=== PATIENT | female | born 2000 | race African-American/Black ===

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

== ENCOUNTER 2020-08-05 08:17 | Inpatient (IN) ==
[2020-08-05] MEDS ORDERED: LACTATED RINGER'S 1,000 ML IV PRN (08:28)
[2020-08-05] MEDS ORDERED: OXYTOCIN 30 UNITS/500 ML BAG IV PRN (08:28)
[2020-08-05 08:45] LABS: Hematocrit (blood only) 34.3 % (37-47); Hemoglobin 11.4 g/dL (12.0-16.0); Mean Corpuscular Hemoglobin 29.3 pg (25-34); Mean Corpuscular Hgb Conc 33.2 g/dL (32-36); Mean Corpuscular Volume 88.2 fL (80-100); Mean Platelet Volume 10.1 fL (7.4-10.4); Platelet Count 252 K/uL (130-400); RDW Coefficient of Variation 13.5 % (11.5-14.5); RDW Standard Deviation 43.1 fL (36.4-46.3); Red Blood Count 3.89 M/uL (4.2-5.4); White Blood Count 12.22 K/uL (4.8-10.8)
[2020-08-05] MEDS: miSOPROStoL 50 MCG TAB PO SCH ×4 (09:25→21:35)
--- NOTE | 2020-08-05 09:47 | Progress Note ---
Date of Service August 05, 2020 Assessment & Plan Admission and Anticipated Discharge Date Admission Date: August 05, 2020 Subjective Met Pt and Grand Ma Induction for prolonged gestation FHR; CAT1 Ctx; Q7,minimal VE; ft/thick/post Bedside sono; VT plan Cervidil Q4 Results & Data ([facility]) Vital Signs (Past 12 Hours) Vital Signs Temp Pulse Resp BP 08/05/20 08:33 37.1 C 93 H 20 118/72
[2020-08-05] MEDS ORDERED: CALCIUM CARBONATE 500 MG CHEWABLE TAB PO ONE (10:48)
[2020-08-05] MEDS ORDERED: DINOPROSTONE 10 MG INSERT PV ONE (16:44)
[2020-08-05] MEDS ORDERED: ZOLPIDEM TARTRATE 10 MG TAB PO PRN (19:50)
--- NOTE | 2020-08-05 19:53 | Progress Note ---
Date of Service August 05, 2020 Assessment & Plan Admission and Anticipated Discharge Date Admission Date: August 05, 2020 Subjective Pt doing well Induction for postdates FHR; CAT1 Ctx; 1-2mins Plan; Expectant management Results & Data ([facility]) Vital Signs (Past 12 Hours) Vital Signs Temp Pulse Resp BP 08/05/20 19:15 36.6 C 18 08/05/20 19:06 105 H 112/65 08/05/20 15:13 36.8 C 81 20 117/68 08/05/20 12:16 37.2 C 82 20 91/53 L 08/05/20 08:33 37.1 C 93 H 20 118/72
[2020-08-05] MEDS ORDERED: ACETAMINOPHEN 500 MG TAB PO PRN (19:54)
[2020-08-05] MEDS ORDERED: BUTORPHANOL TARTRATE 1 MG/ML VIAL IV PRN (19:54)
[2020-08-06] MEDS: miSOPROStoL 50 MCG TAB PO SCH ×3 (01:00→10:14)
[2020-08-06] MEDS ORDERED: miSOPROStoL 50 MCG TAB PO STA (03:41)
--- NOTE | 2020-08-06 10:04 | Obstetrical Progress Note ---
Date of Service August 06, 2020 Assessment & Plan Admission and Anticipated Discharge Date Admission Date: August 05, 2020 Physical Exam Genitourinary: Manual OB Exam: + cervical dilation fingertip, + cervical effacement 50% and + station high OB Exam Monitor Tracing: + external FHT monitor used and + external uterine monitor used Will start Oxytocin EFW 8.5 lbs Results & Data ([facility]) Vital Signs (Past 12 Hours) Vital Signs Temp Pulse Resp BP 08/06/20 09:15 36.8 C 18 08/06/20 09:14 85 106/62 08/06/20 07:10 37.4 C 18 08/06/20 07:02 37.0 C 18 08/06/20 03:46 76 108/55 L 08/06/20 03:45 36.7 C 18
[2020-08-06] MEDS ORDERED: OXYTOCIN 30 UNITS/500 ML BAG IV PRN (10:12)
[2020-08-06] MEDS: BUTORPHANOL TARTRATE 1 MG/ML VIAL IV PRN ×3 (13:52→18:29)
--- NOTE | 2020-08-06 15:55 | Obstetrical Progress Note ---
Date of Service August 06, 2020 Assessment & Plan Admission and Anticipated Discharge Date Admission Date: August 05, 2020 Physical Exam Genitourinary: Manual OB Exam: + cervical dilation fingertip, + cervical effacement 50% and + station high OB Exam Monitor Tracing: + external FHT monitor used, + external uterine monitor used, + category I and + normal FHT variability Results & Data ([facility]) Vital Signs (Past 12 Hours) Vital Signs Temp Pulse Resp BP 08/06/20 13:50 36.7 C 18 08/06/20 13:30 18 08/06/20 13:00 18 08/06/20 12:30 18 08/06/20 12:00 18 08/06/20 11:30 18 08/06/20 10:58 18 08/06/20 10:49 86 113/64 08/06/20 10:41 82 114/67 08/06/20 10:35 81 18 112/70 08/06/20 09:15 36.8 C 18 08/06/20 09:14 85 106/62 08/06/20 07:10 37.4 C 18 08/06/20 07:02 37.0 C 18
[2020-08-06] MEDS ORDERED: ZOLPIDEM TARTRATE 5 MG TAB PO PRN (23:54)
[2020-08-07] MEDS ORDERED: ZOLPIDEM TARTRATE 5 MG TAB ONE
[2020-08-07] MEDS: BUTORPHANOL TARTRATE 1 MG/ML VIAL IV PRN (00:04)
[2020-08-07] MEDS ORDERED: ACETAMINOPHEN 1,000 MG/100 ML VIAL IV STA (00:49)
--- NOTE | 2020-08-07 00:54 | Obstetrical Progress Note ---
Date of Service August 07, 2020 Assessment & Plan Admission and Anticipated Discharge Date Admission Date: August 05, 2020 Physical Exam Genitourinary: OB Exam Monitor Tracing: + external FHT monitor used, + external uterine monitor used, + category I and + normal FHT variability patient does not tolerate vaginal exams Will give Cytotec orally to continue cervical ripening advised patient that may need more ripening Results & Data ([facility]) Vital Signs (Past 12 Hours) Vital Signs Temp Pulse Resp BP 08/06/20 23:54 73 91/55 L 08/06/20 19:41 36.6 C 18 08/06/20 19:07 75 103/59 L 08/06/20 13:50 36.7 C 18 08/06/20 13:30 18 08/06/20 13:00 18
[2020-08-07] MEDS: miSOPROStoL 50 MCG TAB PO SCH ×2 (01:20→08:50)
[2020-08-07] MEDS ORDERED: ACETAMINOPHEN 1000 MG/100 ML IV IV ONE (03:31)
[2020-08-07] MEDS ORDERED: SODIUM CHLORIDE 0.9% INJ 10 ML VIAL ONE (09:05)
[2020-08-07] MEDS ORDERED: BUPIVACAINE 0.25% 30 ML VIAL ONE ×2 (09:05→21:13)
[2020-08-07] MEDS ORDERED: ePHEDrine sulfate 50 MG/ML AMP ONE (09:05)
[2020-08-07] MEDS ORDERED: fentaNYL citrate 100 MCG/2 ML VIAL ONE ×2 (09:05→21:13)
[2020-08-07] MEDS ORDERED: fentaNYL 2MCG/ML ROPIVACAINE 1.25MG/ML 100 ML BAG EPI ONE (09:06)
--- NOTE | 2020-08-07 09:57 | Anesthesiology Consultation ---
Date of Service August 07, 2020 Assessment & Plan (1) Encounter for pre-operative examination: Chart Review Chart Review: Acceptable Risk for Labor Epidural Consults Requested none ASA ASA2 Proposed Anesthesia Anesthesia Type: Labor Epidural Risk / Benefits Reviewed With: PT / POA / Parent / Guardian, Accepts Plan and Informed Consent Obtained History Height/Weight Height: 5 ft 4 in Weight: 93.44 kg Allergies Allergy/AdvReac Type Severity Reaction Status Date / Time No Known Allergies Allergy Unverified 03/31/20 13:57 Medications Home Medications Medication Instructions Recorded Confirmed Last Taken PNV cmb#95-ferrous fumarate-FA 1 tab PO QAM 03/31/20 08/05/20 08/04/20 08:00 [] Active Medications Generic Name Dose Route Start Last Admin Trade Name Freq PRN Reason Stop Dose Admin Butorphanol Tartrate 1 mg 08/06/20 13:45 08/07/20 00:04 Butorphanol Tartrate 1 Mg/Ml Vial IV 09/05/20 13:44 1 mg Q2R PRN Administration Pain Oxytocin 30 units in 500 mls @ 0 mls/hr 08/06/20 10:12 08/06/20 16:38 Pitocin IV 08/08/20 10:11 0 units/hr .Q0M PRN 0 mls/hr Labor Induction/Augmentation Titration Protocol 0 UNITS/HR Misoprostol 50 mcg 08/05/20 08:40 08/07/20 08:50 Misoprostol 50 Mcg Tab PO 09/04/20 08:39 Not Given Q4 DORA Zolpidem Tartrate 10 mg 08/05/20 19:50 08/05/20 21:39 Zolpidem Tartrate 10 Mg Tab PO 09/04/20 19:49 10 mg HS PRN Administration Sleep Zolpidem Tartrate 5 mg 08/06/20 23:54 08/07/20 00:03 Zolpidem Tartrate 5 Mg Tab PO 09/05/20 23:53 5 mg HS PRN Administration Sleep Past Medical History Medical History (Updated 08/07/20 @ 09:57 by Benito Rome DO) No pertinent past medical history Exercise / Class Metabolic Activity II 4-5 Yardwork/Stairs/Walk up hill Past Surgical History Surgical History No pertinent past surgical history Past Anesthesia History No Hx of Anesthesia Complications and No Family Hx of Anesthesia Complications History of PONV No Hx of PONV and No Hx of Motion Sickness Social History Smoking Status: Former smoker Do You Dip or Chew Tobacco: No Hx Alcohol Use: No Hx Substance Use: No Physical Exam Vital Signs Last Vital Signs Temp 98.2 F 08/07/20 04:30 Pulse 70 08/07/20 05:54 Resp 18 08/06/20 19:41 BP 113/73 08/07/20 05:54 ENMT Mouth: no dentition abnormality Thyromental Distance: > or= 3.5 Finger Breadths Mallampati Class: II Neck normal visual inspection Respiratory normal respiratory effort Auscultation: lungs clear to auscultation bilaterally Cardiovascular Rate/Rhythm: regular rate and regular rhythm Testing Laboratory Results 08/05/20 08:34
[2020-08-07] MEDS ORDERED: NALOXONE HCL 1 MG in SODIUM CHLORIDE 0.9% 1000ML 1,000 ML IV PRN (10:22)
[2020-08-07] MEDS ORDERED: NALOXONE HCL 0.4 MG/1 ML VIAL/CARP IV PRN (10:22)
[2020-08-07] MEDS ORDERED: ePHEDrine sulfate 50 MG/ML AMP IV PRN (10:22)
[2020-08-07] MEDS ORDERED: diphenhydrAMINE 50 MG/ML VIAL IV PRN (10:22)
[2020-08-07] MEDS ORDERED: ONDANSETRON INJ 2 MG/ML 2 ML VIAL IV PRN (10:22)
--- NOTE | 2020-08-07 10:26 | Progress Note ---
Date of Service August 07, 2020 Assessment & Plan Admission and Anticipated Discharge Date Admission Date: August 05, 2020 Subjective Pt doing well No complaints Ht. S1S2 , R/R/R/R Lung; CTA bilat. Abd. NT +BS Incision C/D/I Ext/ No c/C/e a/p lap RSO Pt doing well d/c home with instructions Results & Data ([facility]) Vital Signs (Past 12 Hours) Vital Signs Temp Pulse BP Pulse Ox 08/07/20 10:22 95 H 123/70 08/07/20 10:20 99 H 123/74 08/07/20 10:18 94 H 97 08/07/20 10:15 85 87 L 08/07/20 10:13 96 H 98 08/07/20 10:08 91 H 100 08/07/20 10:06 97 H 93 08/07/20 10:03 105 H 99 08/07/20 09:58 78 126/73 100 08/07/20 05:54 70 113/73 08/07/20 04:30 36.8 C 08/06/20 23:54 73 91/55 L 08/06/20 23:00 36.6 C
[2020-08-07 10:48] LABS: Hematocrit (blood only) 34.1 % (37-47); Hemoglobin 11.3 g/dL (12.0-16.0)
--- NOTE | 2020-08-07 10:51 | Progress Note ---
Date of Service August 07, 2020 Assessment & Plan Admission and Anticipated Discharge Date Admission Date: August 05, 2020 Subjective Induction for post dates FHR; CAT1 Ctx 1-4mins VE; 4/75/-[address] starting Pitocin augmentation Results & Data ([facility]) Vital Signs (Past 12 Hours) Vital Signs Temp Pulse BP Pulse Ox 08/07/20 10:48 84 99 08/07/20 10:43 98 H 96 08/07/20 10:42 99 H 93 08/07/20 10:38 87 109/60 95 08/07/20 10:35 89 108/59 L 08/07/20 10:33 87 96 08/07/20 10:28 89 107/58 L 97 08/07/20 10:26 96 H 112/59 L 08/07/20 10:24 100 H 141/63 H 08/07/20 10:23 99 H 96 08/07/20 10:22 95 H 123/70 08/07/20 10:20 99 H 123/74 08/07/20 10:18 94 H 97 08/07/20 10:15 85 87 L 08/07/20 10:13 96 H 98 08/07/20 10:08 91 H 100 08/07/20 10:06 97 H 93 08/07/20 10:03 105 H 99 08/07/20 09:58 78 126/73 100 08/07/20 05:54 70 113/73 08/07/20 04:30 36.8 C 08/06/20 23:54 73 91/55 L 08/06/20 23:00 36.6 C
[2020-08-07] MEDS ORDERED: OXYTOCIN 30 UNITS/500 ML BAG IV PRN (10:52)
[2020-08-07] MEDS ORDERED: Nursing to Pharmacy Communication SCH (11:30)
[2020-08-07] MEDS: LACTATED RINGER'S 1,000 ML IV PRN ×2 (12:43→23:14)
--- NOTE | 2020-08-07 16:53 | Progress Note ---
Date of Service August 07, 2020 Assessment & Plan Admission and Anticipated Discharge Date Admission Date: August 05, 2020 Subjective Pt doing well FHR; CAT1 PIt. 4mu Ctx 1-3mins VE; /1 AROM with amnio hook- light meconium Plan Anticipate VD Results & Data ([facility]) Vital Signs (Past 12 Hours) Vital Signs Temp Pulse Resp BP Pulse Ox 08/07/20 16:48 94 H 93 08/07/20 16:47 98 H 94 08/07/20 16:43 92 H 91 08/07/20 16:41 81 97/59 L 08/07/20 16:38 87 93 08/07/20 16:33 85 92 08/07/20 16:28 88 92 08/07/20 16:25 93 H 104/58 L 08/07/20 16:23 87 92 08/07/20 16:18 82 91 08/07/20 16:13 93 H 94 08/07/20 16:10 89 106/64 08/07/20 16:08 87 93 08/07/20 16:06 91 H 94 08/07/20 16:03 93 H 95 08/07/20 15:58 88 98 08/07/20 15:55 86 107/72 08/07/20 15:53 85 94 08/07/20 15:48 84 94 08/07/20 15:43 84 93 08/07/20 15:40 88 104/64 08/07/20 15:38 81 95 08/07/20 15:33 99 H 93 08/07/20 15:28 88 94 08/07/20 15:26 95 H 112/64 08/07/20 15:23 92 H 97 08/07/20 15:18 87 97 08/07/20 15:13 88 98 08/07/20 15:10 86 110/62 94 08/07/20 15:08 84 97 08/07/20 15:04 86 93 08/07/20 15:03 88 98 08/07/20 15:00 18 08/07/20 14:58 92 H 95 08/07/20 14:55 83 115/68 08/07/20 14:53 92 H 95 08/07/20 14:49 87 94 08/07/20 14:48 82 94 08/07/20 14:43 81 95 08/07/20 14:41 80 114/62 08/07/20 14:38 83 95 08/07/20 14:33 82 98 08/07/20 14:30 20 08/07/20 14:28 87 98 08/07/20 14:25 87 109/66 08/07/20 14:23 83 96 08/07/20 14:18 85 98 08/07/20 14:13 88 98 08/07/20 14:11 79 115/69 08/07/20 14:08 81 99 08/07/20 14:03 92 H 96 08/07/20 14:00 20 08/07/20 13:58 91 H 96 08/07/20 13:56 85 109/65 08/07/20 13:53 81 96 08/07/20 13:48 78 96 08/07/20 13:47 86 93 08/07/20 13:43 87 97 08/07/20 13:41 87 109/63 94 08/07/20 13:38 84 96 08/07/20 13:36 84 94 08/07/20 13:33 88 97 08/07/20 13:30 18 08/07/20 13:28 85 96 08/07/20 13:25 85 109/67 08/07/20 13:23 90 97 08/07/20 13:18 86 98 08/07/20 13:13 83 98 08/07/20 13:10 83 111/67 08/07/20 13:08 83 96 08/07/20 13:03 80 97 08/07/20 13:00 20 08/07/20 12:58 77 97 08/07/20 12:55 87 107/65 94 08/07/20 12:53 75 99 08/07/20 12:48 76 97 08/07/20 12:43 84 97 08/07/20 12:41 80 110/66 08/07/20 12:38 81 98 08/07/20 12:33 85 98 08/07/20 12:30 18 08/07/20 12:28 88 96 08/07/20 12:26 81 104/62 08/07/20 12:23 76 95 08/07/20 12:18 79 95 08/07/20 12:13 78 96 08/07/20 12:11 76 106/55 L 08/07/20 12:08 79 95 08/07/20 12:03 79 96 08/07/20 12:00 36.5 C 18 08/07/20 11:58 80 95 08/07/20 11:56 77 103/60 08/07/20 11:53 76 96 08/07/20 11:48 93 H 97 08/07/20 11:43 78 96 08/07/20 11:41 78 103/59 L 08/07/20 11:38 77 96 08/07/20 11:33 85 96 08/07/20 11:30 20 08/07/20 11:28 92 H 96 08/07/20 11:25 79 106/70 08/07/20 11:23 82 98 08/07/20 11:18 93 H 97 08/07/20 11:15 18 08/07/20 11:13 82 97 08/07/20 11:10 90 102/61 08/07/20 11:08 91 H 97 08/07/20 11:03 95 H 99 08/07/20 11:00 95 H 20 92 08/07/20 10:58 92 H 96 08/07/20 10:56 80 113/72 08/07/20 10:53 87 97 08/07/20 10:48 84 99 08/07/20 10:45 20 08/07/20 10:43 98 H 96 08/07/20 10:42 99 H 93 08/07/20 10:38 87 109/60 95 08/07/20 10:35 89 20 108/59 L 08/07/20 10:33 87 96 08/07/20 10:28 89 107/58 L 97 08/07/20 10:26 96 H 112/59 L 08/07/20 10:24 100 H 141/63 H 08/07/20 10:23 99 H 96 08/07/20 10:22 95 H 123/70 08/07/20 10:20 99 H 123/74 08/07/20 10:18 94 H 97 08/07/20 10:15 85 87 L 08/07/20 10:13 96 H 98 08/07/20 10:08 91 H 100 08/07/20 10:06 97 H 93 08/07/20 10:03 105 H 99 08/07/20 09:58 36.9 C 78 20 126/73 100 08/07/20 05:54 70 113/73
[2020-08-07] MEDS: fentaNYL 2MCG/ML ROPIVACAINE 1.25MG/ML 100 ML BAG EPI PRN ×2 (17:48→22:57)
[2020-08-07] MEDS ORDERED: fentaNYL 2MCG/ML ROPIVACAINE 1.25MG/ML 100 ML BAG EPI PRN (21:42)
--- NOTE | 2020-08-07 21:43 | Communication Note ---
Date of Service: August 071asked to redose epidural. I pulled back the epidural 1 cm. I bolused with 100 mcg of fentanyl and 5 mL 0.25% marcaine
[2020-08-07] MEDS ORDERED: NURSING L&D Epidural Breakthrough Pain Update ONE (23:06)
[2020-08-08] MEDS ORDERED: miSOPROStoL 200 MCG TAB ONE ×2 (00:13→00:53)
[2020-08-08] MEDS ORDERED: METHYLERGONOVINE MALEATE 0.2 MG/ML AMP ONE (00:14)
[2020-08-08] MEDS ORDERED: LIDOCAINE HCL 1% 20 ML VIAL ONE (00:20)
[2020-08-08] MEDS ORDERED: SUPERCREAM 0.870% 15 GM JAR EXT PRN (00:52)
[2020-08-08] MEDS ORDERED: bisacodyL 10 MG SUPP PR PRN (00:52)
[2020-08-08] MEDS ORDERED: METHYLERGONOVINE MALEATE 0.2 MG/ML AMP IM ONE (00:52)
[2020-08-08] MEDS ORDERED: HYDROCORTISONE ACETATE 25 MG SUPP PR PRN (00:52)
[2020-08-08] MEDS ORDERED: miSOPROStoL 200 MCG TAB PR ONE (00:52)
[2020-08-08] MEDS ORDERED: BENZOCAINE 20% AER SPR 82.5 GM CAN EXT PRN (00:52)
[2020-08-08] MEDS ORDERED: DIPHTHERIA/TETANUS/PERTUSSIS 0.5 ML SYR/VIAL IM ONE (00:52)
[2020-08-08] MEDS ORDERED: OXYTOCIN 30 UNITS/500 ML BAG IV PRN (00:52)
[2020-08-08] MEDS ORDERED: LACTATED RINGER'S 1,000 ML IV SCH (01:00)
[2020-08-08 01:12] LABS: Base Excess Cord Arterial Bld -4.5 mEq/L (-9-1.8); CO2 Cord Arterial Blood 48 mmHg (39.1-73.5); HCO3 Cord Arterial Blood 22 mmol/L (19.7-28.5); Oxygen Sat Cord Arterial Blood 60.2 % (<60); PO2 Cord Arterial Blood 28 mmHg (4.1-31.7); pH Cord Arterial Blood 7.29 (7.1-7.38)
[2020-08-08 01:15] LABS: Base Excess Cord Venous Blood -4.1 mEq/L (-7.7-1.9); Cord Venous Blood HCO3 22 mmol/L (18.4-26.8); Cord Venous Blood PCO2 43 mmHg (30.4-57.2); Cord Venous Blood PO2 32 mmHg (14.1-43.3); Cord Venous Blood pH 7.32 (7.20-7.44)
[2020-08-08] MEDS: IBUPROFEN 600 MG TAB PO PRN ×4 (01:52→19:41)
[2020-08-08] MEDS ORDERED: COUGH DROP (SUGAR FREE) LOZ 24 LOZ/1 BOX BUCCAL ONE (02:46)
[2020-08-08] MEDS: ACETAMINOPHEN 325 MG TAB PO PRN ×3 (03:18→21:00)
[2020-08-08] MEDS: FERROUS SULFATE 325 MG TAB PO SCH (08:01)
[2020-08-08] MEDS: PRENATAL VITAMIN 1 TAB PO SCH (08:01)
[2020-08-08] MEDS: DOCUSATE SODIUM 100 MG CAP PO SCH ×2 (08:01→19:41)
--- NOTE | 2020-08-08 08:45 | Obstetrical Progress Note ---
Date of Service August 08, 2020 Assessment & Plan (1) Normal course: PPD #1 pt doing well anticipate disch tomorrow Subjective Ambulation: ambulating normally Voiding: no voiding problems Passing Gas:: Yes Diet Tolerance:: regular diet Lochia:: Small Feeding Type:: breast feeding Review of Systems All systems reviewed & are unremarkable except as noted in HPI & below Physical Exam Constitutional WD/WN, vitals as above well developed and well nourished Eyes PERRL, conjunctivae normal, anicteric sclerae Neck trachea midline, no thyromegaly Respiratory normal respiratory effort, lungs clear to auscultation Auscultation: no crackles, no rales and no wheezes Cardiovascular RRR, no murmur, no edema Gastrointestinal (Abdomen) normal bowel sounds, soft, nontender, no hepatosplenomegaly Uterus is below umbilicus Musculoskeletal no cyanosis or clubbing, extremities motor strength 5/5 Skin no rashes, warm and dry Neurologic patellar DTR's 2+ bilat, sensation intact Psychiatric A+Ox3, euthymic affect Genitourinary normal external appearance Results & Data ([facility]) Vital Signs (Past 12 Hours) Vital Signs Temp Pulse Pulse Resp BP BP Pulse Ox 08/08/20 03:15 37.0 C 103 H 18 116/77 97 08/08/20 02:45 109 H 20 118/65 08/08/20 02:30 107 H 117/65 08/08/20 02:15 99 H 18 124/65 08/08/20 02:00 89 128/58 L 08/08/20 01:45 101 H 20 142/73 H 08/08/20 01:30 92 H 135/60 08/08/20 01:15 88 20 122/55 L 08/08/20 01:00 88 20 122/55 L 08/08/20 00:46 100 H 94 08/08/20 00:45 88 18 122/55 L 95 08/08/20 00:40 103 H 96 08/08/20 00:35 98 H 95 08/08/20 00:31 98 H 121/58 L 08/08/20 00:30 100 H 95 08/08/20 00:29 104 H 94 08/08/20 00:25 102 H 94 08/08/20 00:24 101 H 94 08/08/20 00:20 106 H 95 08/08/20 00:17 115 H 163/56 H 08/08/20 00:16 130 H 155/64 H 94 08/08/20 00:15 138 H 96 08/08/20 00:10 97 H 97 08/08/20 00:05 94 H 96 08/08/20 00:02 93 H 145/73 H 08/08/20 00:00 101 H 20 98 08/07/20 23:55 111 H 90 08/07/20 23:50 95 H 97 08/07/20 23:47 79 127/60 08/07/20 23:45 107 H 97 08/07/20 23:40 126 H 96 08/07/20 23:35 90 99 08/07/20 23:32 81 118/77 08/07/20 23:30 93 H 20 100 08/07/20 23:25 89 100 08/07/20 23:20 105 H 99 08/07/20 23:15 94 H 20 100 08/07/20 23:10 85 100 08/07/20 23:05 89 91 08/07/20 23:00 37.4 C 110 H 20 94 08/07/20 22:55 97 H 98 08/07/20 22:50 91 H 96 08/07/20 22:45 102 H 98 08/07/20 22:40 107 H 99 08/07/20 22:35 84 99 08/07/20 22:32 86 119/79 08/07/20 22:30 93 H 98 08/07/20 22:29 120 H 89 L 08/07/20 22:25 84 98 08/07/20 22:24 104 H 90 08/07/20 22:20 97 H 99 08/07/20 22:16 98 H 119/71 08/07/20 22:15 100 H 98 08/07/20 22:10 89 98 08/07/20 22:05 83 97 08/07/20 22:01 87 115/66 08/07/20 22:00 84 97 08/07/20 21:59 18 08/07/20 21:55 86 98 08/07/20 21:50 86 97 08/07/20 21:46 85 109/64 08/07/20 21:45 89 98 08/07/20 21:40 98 H 95 08/07/20 21:35 79 98 08/07/20 21:31 91 H 125/84 08/07/20 21:30 91 H 20 98 08/07/20 21:26 79 119/82 08/07/20 21:25 86 95 08/07/20 21:24 90 122/80 08/07/20 21:22 79 121/79 08/07/20 21:20 105 H 121/79 99 08/07/20 21:18 92 H 119/82 08/07/20 21:16 91 H 123/89 08/07/20 21:15 93 H 20 97 08/07/20 21:11 88 122/76 08/07/20 21:10 89 100 08/07/20 21:05 37.1 C 100 H 99 08/07/20 21:02 89 92 08/07/20 21:00 92 H 22 100 08/07/20 20:55 90 98 08/07/20 20:52 101 H 93 08/07/20 20:50 97 H 97 08/07/20 20:45 102 H 20 99
--- NOTE | 2020-08-08 09:05 | Anesthesia Procedure Note ---
Date of Service August 08, 2020 Anesthesia Post Epidural Note Vital Signs Vital Signs: Temp Pulse Resp BP Pulse Ox 98.6 F 103 H 18 116/77 97 08/08/20 03:15 08/08/20 03:15 08/08/20 03:15 08/08/20 03:15 08/08/20 03:15 Pain Intensity Abdomen: Pain Intensity: 10 Notes Mental Status: alert / awake / arousable and participated in evaluation Nausea / Vomiting: adequately controlled Pain: adequately controlled Airway Patency, RR, SpO2: stable & adequate BP & HR: stable & adequate Hydration State: stable & adequate Neuraxial Anesthesia: was administered and sensory block is resolving Anesthetic Complications: no major complications apparent and Pt Satisfied with anesthetic care Epidural: Removed without complications and With tip intact
[2020-08-09 06:36] LABS: Hematocrit (blood only) 29.7 % (37-47); Hemoglobin 9.9 g/dL (12.0-16.0); Mean Corpuscular Hemoglobin 29.9 pg (25-34); Mean Corpuscular Hgb Conc 33.3 g/dL (32-36); Mean Corpuscular Volume 89.7 fL (80-100); Mean Platelet Volume 10.3 fL (7.4-10.4); Platelet Count 244 K/uL (130-400); RDW Coefficient of Variation 13.8 % (11.5-14.5); RDW Standard Deviation 45.2 fL (36.4-46.3); Red Blood Count 3.31 M/uL (4.2-5.4); White Blood Count 16.82 K/uL (4.8-10.8)
[2020-08-09] MEDS: DOCUSATE SODIUM 100 MG CAP PO SCH (07:54)
[2020-08-09] MEDS: PRENATAL VITAMIN 1 TAB PO SCH (07:54)
[2020-08-09] MEDS: FERROUS SULFATE 325 MG TAB PO SCH (07:55)
--- NOTE | 2020-08-09 08:00 | Delivery Summary ---
DATE OF OPERATION: 08/07/2020 The patient delivered a live infant female in occiput anterior presentation. There was no nuchal cord. Infant was delivered. Cord was clamped and cut and handed over to the waiting pediatric team. Prior to delivery there was meconium. 's weight is pending. Cord blood and cord gases were obtained. Placenta was spontaneously delivered. Inspection of the placenta shows meconium stained placenta. Examination of the perineum showed a second-degree midline laceration with 2 labial tears which I repaired with 2-0 and 3-0 Vicryl respectively. There was good hemostasis post repair. Rectal exam post repair showed good sphincter tone. No sutures are palpated in the rectum. Estimated blood loss is 450 mL. Baby and mother are doing well in recovery. All instruments were removed from the vagina including sponges, needles and retractors and accounted for x2. I attest to the content of the Intraoperative Record and any orders documented therein. Any exception s are noted below.
--- NOTE | 2020-08-09 09:56 | Obstetrical Progress Note ---
Date of Service August 09, 2020 Assessment & Plan Admission and Anticipated Discharge Date Admission Date: August 05, 2020 Subjective PPD#2 doing well plans for d/c tolerating diet passing gas out of bed Physical Exam Constitutional: WD/WN, vitals as above well developed and comfortable abdomen soft and non-tender fundus firm no edema neg Alfa's for d/c Results & Data ([facility]) Vital Signs (Past 12 Hours) Vital Signs Temp Pulse Resp BP Pulse Ox 08/09/20 08:14 36.6 C 88 16 120/77 98 08/08/20 23:40 36.5 C 83 16 99/62 L 98 Laboratory Results Laboratory Results - last 72 hr 08/07/20 08/08/20 08/08/20 10:34 00:13 00:13 WBC RBC Hgb 11.3 L Hct 34.1 L MCV MCH MCHC RDW Std Deviation RDW Coeff of Conor Plt Count MPV Cord ABG pH 7.29 Cord ABG pCO2 48 Cord ABG pO2 28 Cord ABG HCO3 22 Cord ABG Base Excess -4.5 Cord ABG O2 Sat 60.2 H Cord VBG pH 7.32 Cord VBG pCO2 43 Cord VBG pO2 32 Cord VBG HCO3 22 Cord VBG Base Excess -4.1 Cord VBG O2 Sat 67.0 Barometric Pressure 737.2 735.8 Blood Gas Comments DANA CORTEZ 08/09/20 05:47 WBC 16.82 H RBC 3.31 L Hgb 9.9 L Hct 29.7 L MCV 89.7 MCH 29.9 MCHC 33.3 RDW Std Deviation 45.2 RDW Coeff of Conor 13.8 Plt Count 244 MPV 10.3 Cord ABG pH Cord ABG pCO2 Cord ABG pO2 Cord ABG HCO3 Cord ABG Base Excess Cord ABG O2 Sat Cord VBG pH Cord VBG pCO2 Cord VBG pO2 Cord VBG HCO3 Cord VBG Base Excess Cord VBG O2 Sat Barometric Pressure Blood Gas Comments
[2020-08-09] MEDS ORDERED: bisacodyL 5 MG TABEC PO SCH (20:00)
--- NOTE | 2020-08-20 12:02 | Coding Query ---
CODING QUERY To promote full compliance with coding requirements relating to patient care, provider participation is requested in all cases of utility manager uncertainty. Please assist us with the question(s) below: Coding Question(s): The Vaginal Delivery Summary documents a Date of Operation of 08/07/20. The EMR documents the date of delivery to be 08/08/20. Please specify below, the date of the delivery. (X ) 08/08/20 ( ) 08/07/20 ( ) Other Date: Please Specify delivery was on 08/08/20 @ 1:00AM Physician's Response(s): Thank you Daisy Craig Principal Diagnosis: "that condition established after study, to be chiefly responsible for occasioning the admission of the patient to the hospital for care." Co-Existing Principal Diagnosis: "when two or more diagnoses equally meet the criteria for principal diagnosis as determined by the circumstances of admission, diagnostic work up, and/or therapy provided, and the Alphabetic Index, Tabular List, or another coding guideline does not provide sequencing direction, any one of the diagnoses may be sequenced first." "When the physician has documented what appears to be a current diagnosis in the body of the record, but has not included the diagnosis in the final diagnostic statement, the physician should be asked whether the diagnosis should be added." ([facility] 2 QTR90. p3-4) SHANE
== END 2020-08-09 11:15 | disposition home or self-care (01) | DRG 807 ==
LOC: 4S1 08:17 → 4S2 08-08 03:16